=== PATIENT | female | born 1945 | race Caucasian/White ===

== ENCOUNTER 2017-08-30 09:40 | Inpatient (IN) | payer MEDICARE, OTHER ==
[~2017-08-30] VITALS: Ht 165.1 cm; Wt 82.0 kg
[2017-08-30 09:56] LABS: BASOPHILS ABSOLUTE AUTO 0.12 K/mm3 (0.00-0.23); BASOPHILS PERCENT AUTO 1 % (0-2); EOSINOPHILS ABSOLUTE AUTO 0.53 K/mm3 (0.00-0.68); EOSINOPHILS PERCENT AUTO 3 % (0-6); Hematocrit 48.1 % (33.0-51.0); Hemoglobin 16.1 g/dL (11.5-16.0); IMMATURE GRAN ABSOLUTE AUTO 0.08 K/mm3 (0.00-0.10); IMMATURE GRAN PERCENT AUTO 1 % (0-1); LYMPHOCYTES ABSOLUTE AUTO 4.74 K/mm3 (0.84-5.20); LYMPHOCYTES PERCENT AUTO 29 % (21-46); MONOCYTES ABSOLUTE AUTO 1.27 K/mm3 (0.16-1.47); MONOCYTES PERCENT AUTO 8 % (4-13); Mean Corpuscular HGB 28.9 pg (26.0-34.0); Mean Corpuscular HGB Conc 33.5 g/dL (31.5-36.5); Mean Corpuscular Volume 86 fL (80-100); Mean Platelet Volume 9.2 fL (9.1-12.4); NEUTROPHILS ABSOLUTE AUTO 9.86 K/mm3 (1.96-9.15); NEUTROPHILS PERCENT AUTO 59 % (41-73); Platelet Count 310 K/mm3 (150-400); RDW Standard Deviation 40.4 fL (35.1-46.3); Red Blood Cell Count 5.58 M/mm3 (3.80-5.20)
[2017-08-30 10:03] LABS: PCO2 Arterial 46.5 mmHg (35-45); PO2 Arterial 78.1 mmHg (80-100); pH Blood Arterial 7.32 (7.35-7.45)
[2017-08-30 10:19] LABS: Alanine Aminotransfer (ALT/SGP 50 U/L (12-78); Albumin, Blood 3.5 g/dL (3.4-5.0); Albumin/Globulin Ratio 0.8 (0.8-1.8); Alk Phos 154 U/L (50-136); Anion Gap 11 mmol/L (6-16); Aspartate Aminotrans (AST/SGOT 38 U/L (12-37); Bilirubin, Total 0.5 mg/dL (0.1-1.0); Blood Urea Nitrogen 12 mg/dL (8-24); Bun/Creatinine Ratio 17.2 (12.0-20.0); CO2, Blood 25 mmol/L (21-32); Calcium, Blood 8.9 mg/dL (8.5-10.1); Chloride, Blood 106 mmol/L (98-108); Globulin, Blood 4.2 g/dL (2.2-4.0); Glomerular Filtration Rate >60 (60-); Glucose, Blood 204 mg/dL (70-99); Potassium, Blood 4.1 mmol/L (3.5-5.5); Sodium, Blood 142 mmol/L (136-145); Total Protein, Blood 7.7 g/dL (6.4-8.2); Troponin I <0.015 ng/mL (0.000-0.040)
[2017-08-31 04:20] LABS: BASOPHILS ABSOLUTE AUTO 0.01 K/mm3 (0.00-0.23); BASOPHILS PERCENT AUTO 0 % (0-2); EOSINOPHILS PERCENT AUTO 0 % (0-6); Hematocrit 42.6 % (33.0-51.0); Hemoglobin 14.5 g/dL (11.5-16.0); IMMATURE GRAN ABSOLUTE AUTO 0.09 K/mm3 (0.00-0.10); IMMATURE GRAN PERCENT AUTO 1 % (0-1); LYMPHOCYTES ABSOLUTE AUTO 0.66 K/mm3 (0.84-5.20); LYMPHOCYTES PERCENT AUTO 6 % (21-46); MONOCYTES ABSOLUTE AUTO 0.18 K/mm3 (0.16-1.47); MONOCYTES PERCENT AUTO 2 % (4-13); Mean Corpuscular HGB 28.6 pg (26.0-34.0); Mean Corpuscular Volume 84 fL (80-100); Mean Platelet Volume 9.3 fL (9.1-12.4); NEUTROPHILS ABSOLUTE AUTO 10.56 K/mm3 (1.96-9.15); NEUTROPHILS PERCENT AUTO 92 % (41-73); Platelet Count 251 K/mm3 (150-400); RDW Standard Deviation 39.7 fL (35.1-46.3); Red Blood Cell Count 5.07 M/mm3 (3.80-5.20)
[2017-08-31 04:44] LABS: Anion Gap 9 mmol/L (6-16); Blood Urea Nitrogen 17 mg/dL (8-24); Bun/Creatinine Ratio 28.5 (12.0-20.0); CO2, Blood 26 mmol/L (21-32); Calcium, Blood 9.4 mg/dL (8.5-10.1); Chloride, Blood 105 mmol/L (98-108); Glomerular Filtration Rate >60 (60-); Glucose, Blood 168 mg/dL (70-99); Potassium, Blood 4.2 mmol/L (3.5-5.5); Sodium, Blood 140 mmol/L (136-145)
[2017-08-31] MEDS ORDERED: DIAZ5 PO (13:34)
[2017-08-31] MEDS ORDERED: METH5 PO (13:34)
[2017-08-31] MEDS ORDERED: OXYC5 PO (13:35)
[2017-08-31] MEDS ORDERED: METO25ER PO (13:35)
[2017-08-31] MEDS ORDERED: LISI5 PO (13:36)
[2017-08-31] MEDS ORDERED: DULO30 PO (13:37)
[2017-08-31] MEDS ORDERED: DULO60 PO (13:38)
[2017-09-01] MEDS ORDERED: METO25 PO (13:40)
[2017-09-01] MEDS ORDERED: Acetaminophen325 M1 PO (13:41)
[2017-09-01] MEDS ORDERED: ASPI81CH PO (13:42)
[2017-09-01] MEDS ORDERED: CEPH500 PO (13:42)
[2017-09-01] MEDS ORDERED: FURO20 PO (13:43)
[2017-09-01] MEDS ORDERED: PRED20 PO (13:44)
[2017-09-01] MEDS ORDERED: NICO21TP TOP (13:44)
[2017-09-01] MEDS ORDERED: AZIT500 PO (13:45)
== END 2017-09-01 15:26 | disposition home or self-care (01) | DRG 193 ==
LOC: ER 09:40 → PCU 11:56 → MEDS 08-31 18:35 → ENPENDDIS 09-01 12:30 → MEDS 09-01 15:26
PROVIDERS: Emergency Medicine; Family Medicine
PROC: 5A09357 Assistance with Respiratory Ventilation, Less than 24 Consecutive Hours, Continuous Positive Airway Pressure (ICD-10-PCS; principal; 2017-08-30)
DX: J18.9 Pneumonia, unspecified organism (principal); J96.21 Acute and chronic respiratory failure with hypoxia; J96.22 Acute and chronic respiratory failure with hypercapnia; J44.1 Chronic obstructive pulmonary disease with (acute) exacerbation; J44.0 Chronic obstructive pulmonary disease with (acute) lower respiratory infection; F17.210 Nicotine dependence, cigarettes, uncomplicated; M79.7 Fibromyalgia; G89.29 Other chronic pain; I50.9 Heart failure, unspecified; M54.9 Dorsalgia, unspecified; M19.90 Unspecified osteoarthritis, unspecified site; M85.80 Other specified disorders of bone density and structure, unspecified site; Z96.651 Presence of right artificial knee joint; Z66 Do not resuscitate; I48.2 Chronic atrial fibrillation; I11.0 Hypertensive heart disease with heart failure; T38.0X5A Adverse effect of glucocorticoids and synthetic analogues, initial encounter; R73.09 Other abnormal glucose; I16.0 Hypertensive urgency
CPT/HCPCS: 36415; 36600; 71045; 71046; 80048; 80053; 82803; 83605; 83880; 84145; 84443; 84484; 85025; 85379; 93005; 93010; 93306; 93970; 94060; 94640; 94660; 94664; 94667; 94760; 94762; 96365; 96366; 96375; 98960; 99285; 99407; J0456; J0696; J1650; J1940; J2930; J7030; J7050

== ENCOUNTER 2017-10-07 18:01 | Emergency (ER) | payer MEDICARE, OTHER ==
[~2017-10-07] VITALS: Ht 165.1 cm; Wt 78.0 kg
[~2017-10-07 18:01] MED LIST: ASPI81CH PO; AZIT500 PO; Acetaminophen325 M1 PO; CEPH500 PO; DIAZ5 PO; DULO30 PO; DULO60 PO; FURO40 PO; K-TAB ER20 MEQ PO; LISI5 PO; METH5 PO; METO25 PO; METO25ER PO; NICO21TP TOP; OXYC5 PO; PRED20 PO
[2017-10-07 18:58] LABS: BASOPHILS ABSOLUTE AUTO 0.04 K/mm3 (0.00-0.23); BASOPHILS PERCENT AUTO 0 % (0-2); EOSINOPHILS ABSOLUTE AUTO 0.11 K/mm3 (0.00-0.68); EOSINOPHILS PERCENT AUTO 1 % (0-6); Hematocrit 40.1 % (33.0-51.0); Hemoglobin 13.4 g/dL (11.5-16.0); IMMATURE GRAN ABSOLUTE AUTO 0.05 K/mm3 (0.00-0.10); IMMATURE GRAN PERCENT AUTO 1 % (0-1); LYMPHOCYTES ABSOLUTE AUTO 1.53 K/mm3 (0.84-5.20); LYMPHOCYTES PERCENT AUTO 16 % (21-46); MONOCYTES ABSOLUTE AUTO 0.86 K/mm3 (0.16-1.47); MONOCYTES PERCENT AUTO 9 % (4-13); Mean Corpuscular HGB 28.8 pg (26.0-34.0); Mean Corpuscular HGB Conc 33.4 g/dL (31.5-36.5); Mean Corpuscular Volume 86 fL (80-100); NEUTROPHILS ABSOLUTE AUTO 7.05 K/mm3 (1.96-9.15); NEUTROPHILS PERCENT AUTO 73 % (41-73); Platelet Count 224 K/mm3 (150-400); RDW Coefficient Variation 12.9 % (11.7-14.2); RDW Standard Deviation 40.1 fL (35.1-46.3); Red Blood Cell Count 4.65 M/mm3 (3.80-5.20); White Blood Cell Count 9.64 K/mm3 (4.00-11.30)
[2017-10-07 19:22] LABS: Anion Gap 6 mmol/L (6-16); Blood Urea Nitrogen 16 mg/dL (8-24); Bun/Creatinine Ratio 19.8 (12.0-20.0); CO2, Blood 30 mmol/L (21-32); Calcium, Blood 9.4 mg/dL (8.5-10.1); Chloride, Blood 103 mmol/L (98-108); Creatinine, Blood 0.81 mg/dL (0.40-1.00); Glomerular Filtration Rate >60 (60-); Glucose, Blood 98 mg/dL (70-99); Magnesium, Blood 2.3 mg/dL (1.6-2.4); Potassium, Blood 4.2 mmol/L (3.5-5.5); Sodium, Blood 139 mmol/L (136-145); Troponin I <0.015 ng/mL (0.000-0.040)
[2017-10-07 20:11] LABS: Source, Urine Clean Catch
[2017-10-07 20:13] LABS: Bilirubin, Urine Neg (Neg); Blood, Urine Neg (Neg); Glucose Qualitative, Urine Neg (Neg); Ketones, Urine Neg (Neg); Leukocyte Esterase, Urine 1+ (Neg); Nitrite, Urine Neg (Neg); Protein, Urine Neg (Neg); Specific Gravity, Urine 1.005 (1.003-1.022); Urobilinogen, Urine NORM (Normal)
[2017-10-07 20:21] LABS: Appearance, Urine Clear (Clear); Color, Urine Yellow (P-Yellow)
[2017-10-07 20:22] LABS: Bacteria Rare /hpf; Red Blood Cells, Urine 0-2 /hpf (0-2); Squamous Epithelial Cells Rare /hpf (Few); White Blood Cells, Urine 0-2 /hpf (0-5)
[2017-10-07] MEDS ORDERED: POTCHL20ER PO (20:38)
[2017-10-07] MEDS ORDERED: Lasix20 MG PO (20:38)
== END 2017-10-07 20:53 | disposition home or self-care (01) ==
LOC: ER 18:01
PROVIDERS: Emergency Medicine
DX: I50.9 Heart failure, unspecified (principal); R60.0 Localized edema; Z88.8 Allergy status to other drugs, medicaments and biological substances; Z79.899 Other long term (current) drug therapy; Z79.82 Long term (current) use of aspirin; Z79.2 Long term (current) use of antibiotics; Z79.52 Long term (current) use of systemic steroids; J44.9 Chronic obstructive pulmonary disease, unspecified; Z87.891 Personal history of nicotine dependence
CPT/HCPCS: 71046; 80048; 81001; 83735; 83880; 84484; 85025; 93005; 93010; 96374; 96375; 99285-25; J1940

== ENCOUNTER 2019-06-14 15:20 | Emergency (ER) | payer MEDICARE, OTHER ==
[~2019-06-14] VITALS: Ht 162.6 cm; Wt 74.8 kg
[~2019-06-14 15:20] MED LIST changes: +Lasix20 MG PO; +POTCHL20ER PO
[2019-06-14] MEDS ORDERED: Lopressor 50 mg50 MG PO (15:42)
[2019-06-14] MEDS ORDERED: OMEP20ER PO (15:43)
[2019-06-14] MEDS ORDERED: FURO40 PO (15:43)
[2019-06-14] MEDS ORDERED: ALBU90OI INH (15:43)
[2019-06-14] MEDS ORDERED: LISI20 PO (15:43)
[2019-06-14] MEDS ORDERED: OXYC5 PO (15:55)
[2019-06-14] MEDS ORDERED: DIAZ5 PO (15:55)
[2019-06-14] MEDS ORDERED: Valium5 MG PO (16:09)
[2019-06-14] MEDS ORDERED: DULO60 PO (16:09)
== END 2019-06-14 16:20 | disposition home or self-care (01) ==
LOC: ER 15:20
DX: F32.9 Major depressive disorder, single episode, unspecified (principal); Z76.0 Encounter for issue of repeat prescription; J44.9 Chronic obstructive pulmonary disease, unspecified; I50.9 Heart failure, unspecified; Z88.8 Allergy status to other drugs, medicaments and biological substances; Z79.899 Other long term (current) drug therapy; Z87.891 Personal history of nicotine dependence
CPT/HCPCS: 99281

== ENCOUNTER → 2019-08-25 | Outpatient (CLI) | payer MEDICARE, OTHER ==
[~2019-08-25] MED LIST changes: +ALBU90OI INH; +LISI20 PO; +Lopressor 50 mg50 MG PO; +OMEP20ER PO; +Valium5 MG PO
[2019-08-25 12:19] LABS: BASOPHILS ABSOLUTE AUTO 0.07 K/mm3 (0.00-0.23); BASOPHILS PERCENT AUTO 1 % (0-2); EOSINOPHILS ABSOLUTE AUTO 0.24 K/mm3 (0.00-0.68); EOSINOPHILS PERCENT AUTO 2 % (0-6); Hematocrit 44.5 % (33.0-51.0); Hemoglobin 15.1 g/dL (11.5-16.0); IMMATURE GRAN ABSOLUTE AUTO 0.04 K/mm3 (0.00-0.10); IMMATURE GRAN PERCENT AUTO 0 % (0-1); LYMPHOCYTES ABSOLUTE AUTO 1.65 K/mm3 (0.84-5.20); LYMPHOCYTES PERCENT AUTO 16 % (21-46); MONOCYTES ABSOLUTE AUTO 0.85 K/mm3 (0.16-1.47); MONOCYTES PERCENT AUTO 8 % (4-13); Mean Corpuscular HGB 28.5 pg (26.0-34.0); Mean Corpuscular HGB Conc 33.9 g/dL (31.5-36.5); Mean Corpuscular Volume 84 fL (80-100); Mean Platelet Volume 9.1 fL (9.1-12.4); NEUTROPHILS ABSOLUTE AUTO 7.26 K/mm3 (1.96-9.15); NEUTROPHILS PERCENT AUTO 72 % (41-73); Platelet Count 287 K/mm3 (150-400); RDW Coefficient Variation 12.7 % (11.7-14.2); RDW Standard Deviation 38.3 fL (35.1-46.3); White Blood Cell Count 10.11 K/mm3 (4.00-11.30)
[2019-08-25 12:28] LABS: Albumin, Blood 3.9 g/dL (3.4-5.0); Bilirubin, Total 0.5 mg/dL (0.1-1.0); Bun/Creatinine Ratio 20.6 (12.0-20.0); Calcium, Blood 9.9 mg/dL (8.5-10.1); Creatinine, Blood 1.65 mg/dL (0.40-1.00); Globulin, Blood 3.8 g/dL (2.2-4.0); Potassium, Blood 4.5 mmol/L (3.5-5.5); Total Protein, Blood 7.7 g/dL (6.4-8.2)
== END | disposition home or self-care (01) ==
LOC: LAB EV 12:11 → LAB SHORT 12:11
PROVIDERS: Physician Assistant Surgical
DX: R53.83 Other fatigue (principal)
CPT/HCPCS: 80053; 83880; 84484; 85025

== ENCOUNTER → 2020-10-20 | Outpatient (CLI) | payer OTHER ==
[2020-10-20 14:45] LABS: BASOPHILS ABSOLUTE AUTO 0.06 K/mm3 (0.00-0.23); BASOPHILS PERCENT AUTO 1 % (0-2); EOSINOPHILS ABSOLUTE AUTO 0.18 K/mm3 (0.00-0.68); EOSINOPHILS PERCENT AUTO 2 % (0-6); Hematocrit 42.5 % (33.0-51.0); Hemoglobin 14.6 g/dL (11.5-16.0); IMMATURE GRAN ABSOLUTE AUTO 0.03 K/mm3 (0.00-0.10); IMMATURE GRAN PERCENT AUTO 0 % (0-1); LYMPHOCYTES ABSOLUTE AUTO 1.39 K/mm3 (0.84-5.20); LYMPHOCYTES PERCENT AUTO 17 % (21-46); MONOCYTES PERCENT AUTO 9 % (4-13); Mean Corpuscular HGB 28.9 pg (26.0-34.0); Mean Corpuscular HGB Conc 34.4 g/dL (31.5-36.5); Mean Corpuscular Volume 84 fL (80-100); Mean Platelet Volume 9.1 fL (9.1-12.4); NEUTROPHILS ABSOLUTE AUTO 5.84 K/mm3 (1.96-9.15); NEUTROPHILS PERCENT AUTO 71 % (41-73); Platelet Count 266 K/mm3 (150-400); RDW Coefficient Variation 12.9 % (11.7-14.2); RDW Standard Deviation 39.3 fL (35.1-46.3); Red Blood Cell Count 5.06 M/mm3 (3.80-5.20)
[2020-10-20 15:05] LABS: Albumin, Blood 3.8 g/dL (3.4-5.0); Bilirubin, Total 0.5 mg/dL (0.1-1.0); Bun/Creatinine Ratio 18.7 (12.0-20.0); Calcium, Blood 9.7 mg/dL (8.5-10.1); Creatinine, Blood 1.23 mg/dL (0.40-1.00); Globulin, Blood 3.7 g/dL (2.2-4.0); Potassium, Blood 3.8 mmol/L (3.5-5.5); Thyroid Stimulating Hormone 3.069 uIU/mL (0.360-4.800); Total Protein, Blood 7.5 g/dL (6.4-8.2)
== END ==
LOC: LAB SHORT 14:41 → PLD 14:41
PROVIDERS: Physician Assistant
DX: R53.83 Other fatigue (principal); Z88.8 Allergy status to other drugs, medicaments and biological substances
CPT/HCPCS: 80053; 84443; 85025

== ENCOUNTER → 2021-10-28 | Outpatient (CLI) | payer OTHER | END | disposition home or self-care (01) | LOC: PLD 07:54 → LAB SHORT 07:54 | DX: B35.1 Tinea unguium (principal); L60.2 Onychogryphosis | CPT/HCPCS: 88304; 88312 ==

== ENCOUNTER 2022-05-22 10:46 | Emergency (ER) | payer OTHER ==
[~2022-05-22] VITALS: Ht 165.1 cm; Wt 83.9 kg
[2022-05-22 11:46] LABS: BASOPHILS ABSOLUTE AUTO 0.08 K/mm3 (0.00-0.23); BASOPHILS PERCENT AUTO 1 % (0-2); EOSINOPHILS ABSOLUTE AUTO 0.36 K/mm3 (0.00-0.68); EOSINOPHILS PERCENT AUTO 4 % (0-6); Hematocrit 37.9 % (33.0-51.0); Hemoglobin 12.7 g/dL (11.5-16.0); IMMATURE GRAN ABSOLUTE AUTO 0.04 K/mm3 (0.00-0.10); IMMATURE GRAN PERCENT AUTO 0 % (0-1); LYMPHOCYTES ABSOLUTE AUTO 1.45 K/mm3 (0.84-5.20); LYMPHOCYTES PERCENT AUTO 16 % (21-46); MONOCYTES ABSOLUTE AUTO 0.92 K/mm3 (0.16-1.47); MONOCYTES PERCENT AUTO 10 % (4-13); Mean Corpuscular HGB 28.9 pg (26.0-34.0); Mean Corpuscular HGB Conc 33.5 g/dL (31.5-36.5); Mean Corpuscular Volume 86 fL (80-100); Mean Platelet Volume 9.2 fL (9.1-12.4); NEUTROPHILS ABSOLUTE AUTO 6.18 K/mm3 (1.96-9.15); NEUTROPHILS PERCENT AUTO 68 % (41-73); Platelet Count 245 K/mm3 (150-400); RDW Coefficient Variation 12.6 % (11.7-14.2); RDW Standard Deviation 39.7 fL (35.1-46.3); Red Blood Cell Count 4.39 M/mm3 (3.80-5.20); White Blood Cell Count 9.03 K/mm3 (4.00-11.30)
[2022-05-22 12:05] LABS: Calcium, Ionized (POC) 1.25 mmol/L (1.10-1.46); Chloride (POC) 102 mmol/L (98-108); Creatinine (POC) 1.5 mg/dL (0.6-1.0); Glucose (ISTAT POC) 98 mg/dL (70-99); Hemoglobin (POC) 12.2 g/dL (12.0-16.0); Potassium (POC) 4.4 mmol/L (3.5-5.5); Sodium (POC) 139 mmol/L (135-148); Total CO2 (POC) 28 mmol/L (21-32)
[2022-05-23] MEDS ORDERED: ATOR10 PO (08:54)
[2022-05-23] MEDS ORDERED: Potassium Chlo20 ME1 PO (08:54)
[2022-05-23] MEDS ORDERED: SOAANZ20 M3 PO (08:54)
[2022-05-23] MEDS ORDERED: Flonase 0.05% N16 GM (10:18)
[2022-05-23] MEDS ORDERED: SYMBICORT 80-10.2 GM INH (10:18)
== END 2022-05-22 12:55 | disposition left against medical advice (07) ==
LOC: ER 10:46
PROVIDERS: Physician Assistant
DX: R05.9 Cough, unspecified (principal); Z53.21 Procedure and treatment not carried out due to patient leaving prior to being seen by health care provider
CPT/HCPCS: 36415; 71046; 80047; 83880; 85014; 85025; 93005; 93010; 99282-25

== ENCOUNTER 2022-11-09 22:55 | Emergency (ER) | payer OTHER ==
[~2022-11-09] VITALS: Ht 160 cm; Wt 79.4 kg
[~2022-11-09 22:55] MED LIST changes: +ATOR10 PO; +Flonase 0.05% N16 GM; +Potassium Chlo20 ME1 PO; +SOAANZ20 M3 PO; +SYMBICORT 80-10.2 GM INH
[2022-11-09 23:01] VITALS: BP 178/62
[2022-11-10] MEDS ORDERED: DULO30 PO (00:57)
[2022-11-10] MEDS ORDERED: CLOP75 (00:57)
[2022-11-10] MEDS ORDERED: MUPIROCIN111 (00:57)
== END 2022-11-10 01:57 | disposition home or self-care (01) ==
LOC: ER 22:55
DX: L25.9 Unspecified contact dermatitis, unspecified cause (principal); Z91.030 Bee allergy status; Z88.8 Allergy status to other drugs, medicaments and biological substances; Z79.899 Other long term (current) drug therapy; Z87.891 Personal history of nicotine dependence; I13.0 Hypertensive heart and chronic kidney disease with heart failure and stage 1 through stage 4 chronic kidney disease, or unspecified chronic kidney disease; E78.5 Hyperlipidemia, unspecified; I50.9 Heart failure, unspecified; N18.30 Chronic kidney disease, stage 3 unspecified; I48.91 Unspecified atrial fibrillation
CPT/HCPCS: 99282; A9270

== ENCOUNTER 2024-05-23 07:44 | Emergency (ER) | payer OTHER ==
[~2024-05-23] VITALS: Ht 160 cm; Wt 77.1 kg
[~2024-05-23 07:44] MED LIST changes: +CLOP75; -Lopressor 50 mg50 MG PO; +METO100ER PO; +MUPIROCIN111; +SOAANZ20 M1 PO
[2024-05-23 08:47] LABS: BASOPHILS ABSOLUTE AUTO 0.06 K/mm3 (0.00-0.23); BASOPHILS PERCENT AUTO 1 % (0-2); EOSINOPHILS ABSOLUTE AUTO 0.14 K/mm3 (0.00-0.68); EOSINOPHILS PERCENT AUTO 2 % (0-6); Hemoglobin 11.3 g/dL (11.5-16.0); IMMATURE GRAN ABSOLUTE AUTO 0.05 K/mm3 (0.00-0.10); IMMATURE GRAN PERCENT AUTO 1 % (0-1); LYMPHOCYTES ABSOLUTE AUTO 0.52 K/mm3 (0.84-5.20); LYMPHOCYTES PERCENT AUTO 6 % (21-46); MONOCYTES ABSOLUTE AUTO 0.74 K/mm3 (0.16-1.47); MONOCYTES PERCENT AUTO 8 % (4-13); Mean Corpuscular HGB Conc 33.2 g/dL (31.5-36.5); Mean Corpuscular Volume 84 fL (80-100); Mean Platelet Volume 9.1 fL (9.1-12.4); NEUTROPHILS ABSOLUTE AUTO 7.64 K/mm3 (1.96-9.15); NEUTROPHILS PERCENT AUTO 84 % (41-73); Platelet Count 285 K/mm3 (150-400); RDW Coefficient Variation 13.7 % (11.7-14.2); RDW Standard Deviation 42.3 fL (35.1-46.3); Red Blood Cell Count 4.04 M/mm3 (3.80-5.20); White Blood Cell Count 9.15 K/mm3 (4.00-11.30)
[2024-05-23 09:08] LABS: Albumin/Globulin Ratio 0.8 (0.8-1.8); Bilirubin, Total 0.7 mg/dL (0.1-1.0); Bun/Creatinine Ratio 21.8 (12.0-20.0); Calcium, Blood 9.2 mg/dL (8.5-10.1); Creatinine, Blood 1.19 mg/dL (0.40-1.00); Globulin, Blood 3.9 g/dL (2.2-4.0); Potassium, Blood 4.5 mmol/L (3.5-5.5); Total Protein, Blood 6.9 g/dL (6.4-8.2)
[2024-05-23] MEDS ORDERED: Furosemide 10 MG / ML 2ML Vial IV ONE (09:20)
[2024-05-23 12:56] LABS: Influenza A, PCR NEGATIVE (NEGATIVE); Influenza B, PCR NEGATIVE (NEGATIVE); Resp Syncytial Virus, PCR NEGATIVE (NEGATIVE); SARS-Cov-2 (COVID-19) PCR, MMC NEGATIVE (NEGATIVE)
[2024-05-23 13:15] VITALS: BP 117/64
== END 2024-05-23 13:16 | disposition home or self-care (01) ==
LOC: ER 07:44
PROVIDERS: Physician Assistant
DX: I13.0 Hypertensive heart and chronic kidney disease with heart failure and stage 1 through stage 4 chronic kidney disease, or unspecified chronic kidney disease (principal); I50.9 Heart failure, unspecified; N18.30 Chronic kidney disease, stage 3 unspecified; E78.5 Hyperlipidemia, unspecified; Z87.891 Personal history of nicotine dependence; Z91.038 Other insect allergy status; Z88.8 Allergy status to other drugs, medicaments and biological substances; Z79.899 Other long term (current) drug therapy
CPT/HCPCS: 0241U; 71046; 80053; 83880; 85025; 93005; 93010; 96374; 99285-25; J1940

== ENCOUNTER 2024-05-25 03:38 | Inpatient (IN) | payer OTHER ==
[~2024-05-25] VITALS: Ht 167.6 cm; Wt 77.6 kg
[2024-05-25 03:52] LABS: BASOPHILS ABSOLUTE AUTO 0.05 K/mm3 (0.00-0.23); BASOPHILS PERCENT AUTO 1 % (0-2); EOSINOPHILS ABSOLUTE AUTO 0.17 K/mm3 (0.00-0.68); EOSINOPHILS PERCENT AUTO 2 % (0-6); Hematocrit 34.5 % (33.0-51.0); Hemoglobin 11.3 g/dL (11.5-16.0); IMMATURE GRAN ABSOLUTE AUTO 0.06 K/mm3 (0.00-0.10); IMMATURE GRAN PERCENT AUTO 1 % (0-1); LYMPHOCYTES ABSOLUTE AUTO 0.93 K/mm3 (0.84-5.20); LYMPHOCYTES PERCENT AUTO 12 % (21-46); MONOCYTES ABSOLUTE AUTO 0.68 K/mm3 (0.16-1.47); MONOCYTES PERCENT AUTO 9 % (4-13); Mean Corpuscular HGB 27.7 pg (26.0-34.0); Mean Corpuscular HGB Conc 32.8 g/dL (31.5-36.5); Mean Corpuscular Volume 85 fL (80-100); NEUTROPHILS ABSOLUTE AUTO 5.94 K/mm3 (1.96-9.15); NEUTROPHILS PERCENT AUTO 76 % (41-73); Platelet Count 296 K/mm3 (150-400); RDW Coefficient Variation 14.1 % (11.7-14.2); RDW Standard Deviation 43.5 fL (35.1-46.3); Red Blood Cell Count 4.08 M/mm3 (3.80-5.20); White Blood Cell Count 7.83 K/mm3 (4.00-11.30)
[2024-05-25] MEDS ORDERED: Albuterol 2.5 MG/3 ML VIAL INH PRN (03:55)
[2024-05-25] MEDS ORDERED: Ipratropium/Albuterol SulF 2.5-0.5MG/3 ML Amp INH SCH ×2 (03:55→05:10)
[2024-05-25] MEDS ORDERED: Metoprolol Tartrate 1 MG/ML 5 ML VIAL IV ONE (03:55)
[2024-05-25 03:57] LABS: Base Excess Venous -1.2 mmol/L; Bicarbonate Venous 23.2 mmol/L (24.0-30.0); PCO2 Venous 40.2 mmHg (38-42); pH Blood Venous 7.38 (7.34-7.37)
[2024-05-25 04:14] LABS: Albumin, Blood 2.9 g/dL (3.4-5.0); Albumin/Globulin Ratio 0.7 (0.8-1.8); Bilirubin, Total 0.5 mg/dL (0.1-1.0); Bun/Creatinine Ratio 26.8 (12.0-20.0); Calcium, Blood 8.9 mg/dL (8.5-10.1); Creatinine, Blood 0.93 mg/dL (0.40-1.00); Globulin, Blood 3.9 g/dL (2.2-4.0); Magnesium, Blood 2.4 mg/dL (1.6-2.4); Phosphorus, Blood 3.3 mg/dL (2.5-4.9); Potassium, Blood 4.3 mmol/L (3.5-5.5); Total Protein, Blood 6.8 g/dL (6.4-8.2)
[2024-05-25] MEDS ORDERED: Azithromycin 500 MG in NS 250 ML IV ONE (04:30)
[2024-05-25] MEDS ORDERED: CefTRIAXone Sodium 1,000 MG in NS 50 ML IV ONE (04:30)
[2024-05-25 04:35] LABS: International Normalized Ratio 1.02; Prothrombin Time Results 10.9 Sec (9.7-11.5)
[2024-05-25 04:42] LABS: Influenza A, PCR NEGATIVE (NEGATIVE); Influenza B, PCR NEGATIVE (NEGATIVE); Resp Syncytial Virus, PCR NEGATIVE (NEGATIVE); SARS-Cov-2 (COVID-19) PCR, MMC NEGATIVE (NEGATIVE)
[2024-05-25] MEDS ORDERED: FLU VACC TS2024-25(6MOS UP)/PF 45 MCG/0.5 ML SYRINGE IM ONE (05:05)
[2024-05-25] MEDS ORDERED: Acetaminophen 325 MG TABLET PO PRN (05:10)
[2024-05-25] MEDS ORDERED: Heparin Sodium,Porcine/0.5 NS 500 ML IV SCH (05:25)
[2024-05-25] MEDS ORDERED: Metoprolol Tartrate 5 ML IV ONE (07:42)
[2024-05-25] MEDS ORDERED: GuaiFENesin 600 MG TabCR PO SCH (09:00)
[2024-05-25] MEDS ORDERED: Furosemide 10 MG/ML 4ML Vial IV SCH (09:00)
[2024-05-25] MEDS ORDERED: Metoprolol Tartrate 50 MG Tab PO SCH (09:00)
[2024-05-25] MEDS ORDERED: PredniSONE 20 MG Tab PO SCH (09:00)
[2024-05-25] MEDS ORDERED: Calcium Carbon500 MG PO (09:08)
[2024-05-25] MEDS ORDERED: CLOBETASOL EMOL15 G1 TOP (09:14)
[2024-05-25] MEDS ORDERED: CALCITRIOL0.25 MC4 PO (09:15)
[2024-05-25 09:30] VITALS: BP 134/93
[2024-05-25 12:30] VITALS: BP 144/91
[2024-05-25] MEDS ORDERED: Dose Adjust by Pharmacy XX STA ×2 (13:10→19:59)
[2024-05-25 16:48] VITALS: BP 123/86
[2024-05-25] MEDS ORDERED: Metoprolol Succinate 50 MG TABCR PO SCH (16:55)
--- NOTE | 2024-05-25 18:51 | NUR ---
SHIFT SUMMARY PATIENT CAME UP FROM ED AOX4 SOB ON 4L NC. HER LUNG SOUNDS ARE COARSE AND WHEEZING. HER O2 SATS ARE ABOVE 92% ON THE NASAL CANNULA BUT INTERMITTANTLY FEELS SOB SO SHE CONTINUES TO ALTERNATE ON AND OFF THE BIPAP. SHE IS ABLE TO MAKE HER NEEDS KNOWN AND AND DENIES CP. SHE DOES HAVE AFIB WITH AN ELEVATED HEART RATE. THE HOSPITALIST WAS PAGED TO CORRECT HER HOME MED DOSE OF TOPROL XL BECAUASE HER HEART RATE CONTINUED TO INCREASE THROUGHOUT THE SHIFT. SHE IS ABLE TO GET UP TO THE BEDSIDE COMMODE WITH A 1X ASSIST SHE HAD A BM TODAY. SHE IS ABLE TO VOID URINE WITH THE PUREWICK AND UP TO BSC. 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
[2024-05-25 19:30] VITALS: BP 132/98
[2024-05-25] MEDS ORDERED: HydrOXYzine Pamoate 50 MG Cap PO PRN (21:20)
[2024-05-26] VITALS (14 sets, daily range): BP systolic 97–146; BP diastolic 62–98
--- NOTE | 2024-05-26 01:22 | NUR ---
UPDATE PT VERY ANXIOUS T/O SHIFT. PTS RR INCREASING TO THE 30'S AND PT ALMOST TO THE POINT OF HAVING A PANIC ATTACK. PT BECAME ANXIOUS WITH BIPAP ON HER FACE BUT ALSO INCREASINGLY ANXIOUS WITHOUT IT ON. PER PT SHE TAKES VALIUM AT HOME SHE FEELS NEED. CALL PLACED TO PROVIDER, ORDERS FOR PRN ANTI-ANXIETY ORDERED. PT TOLERATING WELL AND SLEEPING OKAY WITH BIPAP ON AFTER RECEVING HYDROXIZINE.
[2024-05-26 02:35] LABS: BASOPHILS ABSOLUTE AUTO 0.03 K/mm3 (0.00-0.23); BASOPHILS PERCENT AUTO 0 % (0-2); EOSINOPHILS PERCENT AUTO 0 % (0-6); Hematocrit 35.1 % (33.0-51.0); Hemoglobin 11.4 g/dL (11.5-16.0); IMMATURE GRAN ABSOLUTE AUTO 0.06 K/mm3 (0.00-0.10); IMMATURE GRAN PERCENT AUTO 1 % (0-1); LYMPHOCYTES ABSOLUTE AUTO 0.67 K/mm3 (0.84-5.20); LYMPHOCYTES PERCENT AUTO 5 % (21-46); MONOCYTES ABSOLUTE AUTO 0.74 K/mm3 (0.16-1.47); MONOCYTES PERCENT AUTO 6 % (4-13); Mean Corpuscular HGB 27.3 pg (26.0-34.0); Mean Corpuscular HGB Conc 32.5 g/dL (31.5-36.5); Mean Corpuscular Volume 84 fL (80-100); Mean Platelet Volume 9.1 fL (9.1-12.4); NEUTROPHILS ABSOLUTE AUTO 11.32 K/mm3 (1.96-9.15); NEUTROPHILS PERCENT AUTO 88 % (41-73); Platelet Count 307 K/mm3 (150-400); RDW Coefficient Variation 14.2 % (11.7-14.2); RDW Standard Deviation 43.6 fL (35.1-46.3); Red Blood Cell Count 4.17 M/mm3 (3.80-5.20); White Blood Cell Count 12.82 K/mm3 (4.00-11.30)
[2024-05-26 02:59] LABS: Bun/Creatinine Ratio 35.3 (12.0-20.0); Calcium, Blood 9.4 mg/dL (8.5-10.1); Creatinine, Blood 1.02 mg/dL (0.40-1.00); Potassium, Blood 4.7 mmol/L (3.5-5.5)
[2024-05-26] MEDS ORDERED: Dose Adjust by Pharmacy XX STA (02:59)
--- NOTE | 2024-05-26 05:08 | NUR ---
SHIFT SUMMARY PT A&O X4, SHE IS FORGETFUL AT TIMES. PT IS VERY ANXIOUS AT ALL TIMES, PRN HYDROXYZINE ORDERED. HR IN THE 90'S AT REST, SHE OCASSIONALLY INCREASES TO THE 110'S, SHE DENIES CP/PRESSURE, NUMB/TINGLING, SBP STABLE. O2 >92%. PT REMAINS ON BIPAP MOST OF THE THE NIGHT, PT DOES GET VERY ANXIOUS AND PULLS OFF HER MASK AND PUTS ON THE NC. AFTER BEING ON THE NC PTS RR WILL INCREASE, SHE BEGINS TO PANIC AGIAN AND WILL GO BACK ON BIPAP. PT TOLERATING BIPAP SOMEWHAT BETTER AFTER GETTING HYDROXIZINE. PT RESTING IN BED AT THIS TIME. WILL MONITOR AND REPORT TO ONCOMING NURSE.
[2024-05-26] MEDS ORDERED: Azithromycin 500 MG in NS 250 ML IV SCH (06:00)
[2024-05-26] MEDS ORDERED: MethylPREDNISolone Sod Succ 125 MG Vial IV ONE (09:00)
[2024-05-26] MEDS ORDERED: Enoxaparin 40 MG/0.4 ML SYR SC SCH (09:00)
[2024-05-26] MEDS ORDERED: LORazepam 2 MG/ML 1ML Injection IV PRN (09:30)
[2024-05-26 09:32] LABS: Base Excess Venous -0.6 mmol/L; Bicarbonate Venous 22.4 mmol/L (24.0-30.0); PCO2 Venous 49.7 mmHg (38-42); pH Blood Venous 7.32 (7.34-7.37)
[2024-05-26 10:24] LABS: Adenovirus Not Detected (NOT DETECT); Bordetella pertussis Not Detected (NOT DETECT); Chlamydophila pneumoniae Not Detected (NOT DETECT); Coronavirus 229E Not Detected (NOT DETECT); Coronavirus HKU1 Not Detected (NOT DETECT); Coronavirus NL63 Not Detected (NOT DETECT); Coronavirus OC43 Not Detected (NOT DETECT); Human Metapneumovirus Detected (NOT DETECT); Human Rhinovirus/Enterovirus Not Detected (NOT DETECT); Influenza A/2009-H1 Not Detected (NOT DETECT); Influenza A/H1 Not Detected (NOT DETECT); Influenza A/H3 Not Detected (NOT DETECT); Influenza B Not Detected (NOT DETECT); Mycoplasma pneumoniae Not Detected (NOT DETECT); Parainfluenza Virus 1 Not Detected (NOT DETECT); Parainfluenza Virus 2 Not Detected (NOT DETECT); Parainfluenza Virus 3 Not Detected (NOT DETECT); Parainfluenza Virus 4 Not Detected (NOT DETECT); Respiratory Syncytial Virus Not Detected (NOT DETECT); SARS-Cov-2 (COVID-19), BioFire Not Detected (NOT DETECT)
--- NOTE | 2024-05-26 11:40 | NUR ---
UPDATE/ TRANSFER TO ICU PATIENT WAS A0X4 AT SHIFT CHANGE THIS MORNING ABLE TO MAKE NEED KNOWN. SHE WAS ON THE BIPAP TOLERATING IT WELL. SHE COMPLAINED OF HAVING SOME ANXIETY AND SOME AXIETY MEDS ON STUDENT WORKER. SHE THEN STARTED HAVING SOB WHILE ON BIPAP WITH HER RESPIRATORY RATE IN THE 30'S AND 40'S. HER LUNG SOUNDS WHERE COARSE WITH WHEEZES AND HER WORK OF BREATHING INCRESED. HER O2 SATS WHERE ABOVE 90% THE WHOLE TIME. THE HOSPITALIST WAS AT BEDSIDE AND ORDERED SOLUMEDROL, ATIVAN AND LABS. LASIX WAS ALSO GIVEN IV AND THE HOSPITALIST ORDERED HER TO BE TRANSFERRED TO ICU. AFTER THE MEDS WHERE GIVEN SHE DID CALM DOWN WITH HER RR IN THE 20'S SHE STILL SATTING IN THE 90'S AND HER WORK TO BREATHE IMPROVED. SHE DID HAVE SOME URINARY RETENTION SHE WAS BLADDER SCANNED AND IT SHOWED 733CC. SHE DID SAY SHE FELT SHE HAD TO URINATE AND WHEN SHE PUSHED SHE WAS ABLE TO VOID 500CC. SHE WAS BLADDER SCANNED AGAIN AND IT STILL SHOWED 700CC. REPORT WAS CALLED TO ICU AND LET THEM KNOW ABOUT THE URINARY RETENTION. REPORT WAS CALLED TO ICU
[2024-05-26] MEDS ORDERED: Metolazone 5 MG Tab PO ONE (12:00)
[2024-05-26] MEDS ORDERED: Metoprolol Tartrate 1 MG/ML 5 ML VIAL IV SCH (12:00)
[2024-05-26] MEDS ORDERED: MethylPREDNISolone Sod Succ 125 MG Vial IV SCH (12:00)
[2024-05-26] MEDS ORDERED: Furosemide 10 MG/ML 4ML Vial IV SCH (12:00)
[2024-05-26] MEDS ORDERED: Metoprolol Tartrate 50 MG Tab PO SCH (12:30)
--- NOTE | 2024-05-26 13:18 | NUR ---
TRANSFER PT ARRIVED TO ICU 6 FROM PCU 12. PT WEARING THE BIPAP, OPENS EYES TO VOICE, ORIENTED. HR AFIB WITH RATE IN THE 110-120S. SCHEDULED IV METOPROLOL GIVEN AND ORDER FOR PO METOPROLOL OBTAINED PT TOLERATED A SHORT BREAK FROM THE BIPAP FOR A DRINK OF WATER. ALSO GAVE PT TYLENOL FOR HER BACK PAIN AND TEMP 100.7F. BLADDER SCAN AFTER ARRIVAL SHOWED PT HAD OVER 600ML OF URINE IN HER BLADDER AND SHE WAS UNABLE TO VOID. SPOKE WITH DR CEE AND RECEIVED ORDERS TO PLACE STANTON. PT HAS HAD 1200ML OUT SO FAR. LUNGS ARE DIM, CLEAR IN THE UPPERS, CRACKLES IN THE MID AND BASES. PRODUCTIVE COUGH, YELLOW SPUTUM. TRACE EDEMA IN LOWER EXTREMITIES. PT'S SRIDHAR AT THE BEDSIDE AND WAS UPDATED BY DR. CEE AND NURSING STAFF.
[2024-05-26] MEDS ORDERED: CefTRIAXone Sodium 1,000 MG in NS 100 ML IV ONE (14:35)
--- NOTE | 2024-05-26 16:57 | NUR ---
SHIFT SUMMARY PT HAS BEEN RESTING WITH THE BIPAP ON SINCE ARRIVING TO ICU. ATTEMPTED TO TITRATE HER DOWN TO FIO2 OF 21% TWICE, BUT EACH TIME SHE DESATURATED TO 85%, SO FIO2 REMAINS AT 25%. LUNGS ARE CLEAR IN THE UPPER AIRWAYS, CRACKLES IN THE BASES. AFIB WITH RATE IN THE LOW 100S. TEMP CAME DOWN TO 99.1F AFTER TYLENOL. PT'S SRIDHAR AND SISTER HAVE BEEN AT THE BEDSIDE AND UPDATED BY NURSING STAFF.
[2024-05-27] VITALS (19 sets, daily range): BP systolic 97–162; BP diastolic 63–119
[2024-05-27 04:25] LABS: BASOPHILS ABSOLUTE AUTO 0.03 K/mm3 (0.00-0.23); BASOPHILS PERCENT AUTO 0 % (0-2); EOSINOPHILS PERCENT AUTO 0 % (0-6); Hematocrit 37.4 % (33.0-51.0); Hemoglobin 12.5 g/dL (11.5-16.0); IMMATURE GRAN PERCENT AUTO 1 % (0-1); LYMPHOCYTES ABSOLUTE AUTO 1.06 K/mm3 (0.84-5.20); LYMPHOCYTES PERCENT AUTO 7 % (21-46); MONOCYTES PERCENT AUTO 6 % (4-13); Mean Corpuscular HGB 27.4 pg (26.0-34.0); Mean Corpuscular HGB Conc 33.4 g/dL (31.5-36.5); Mean Corpuscular Volume 82 fL (80-100); Mean Platelet Volume 9.2 fL (9.1-12.4); NEUTROPHILS ABSOLUTE AUTO 13.32 K/mm3 (1.96-9.15); NEUTROPHILS PERCENT AUTO 86 % (41-73); Platelet Count 366 K/mm3 (150-400); RDW Coefficient Variation 14.1 % (11.7-14.2); RDW Standard Deviation 41.7 fL (35.1-46.3); Red Blood Cell Count 4.56 M/mm3 (3.80-5.20); White Blood Cell Count 15.51 K/mm3 (4.00-11.30)
[2024-05-27 04:44] LABS: Albumin, Blood 3.2 g/dL (3.4-5.0); Albumin/Globulin Ratio 0.7 (0.8-1.8); Bilirubin, Total 0.4 mg/dL (0.1-1.0); Bun/Creatinine Ratio 40.5 (12.0-20.0); Calcium, Blood 9.6 mg/dL (8.5-10.1); Creatinine, Blood 1.26 mg/dL (0.40-1.00); Globulin, Blood 4.3 g/dL (2.2-4.0); Potassium, Blood 3.7 mmol/L (3.5-5.5); Total Protein, Blood 7.5 g/dL (6.4-8.2)
[2024-05-27] MEDS ORDERED: Clarify Drug Order XX ONE (04:55)
--- NOTE | 2024-05-27 05:44 | NUR ---
SHIFT SUMMERY PT IS ALERT AND ORIENTED X4, OXYGENATING WELL ON NC. OXYGEN SAT >95% OVERNIGHT. BP WNL. AFIB ON THE STAKEHOLDER MANAGER, DENIES CHEST PAIN/PRESSURE. GOOD URINE OUTPUT /W LASIX-SEE I AND O. STANTON CATH INTACT PATENT AND DRAINING CLEAR YELLOW URINE. HEPARIN GTT INFUSING W/NO CHANGES THIS SHIFT. PT HAS NOT COMPLAINED OF ANY PAIN. AFEBRILE. PT DOES HAVE AN OCCASIONAL, NON PRODUCTIVE BARKING COUGH. NO ACUTE CHANGES OVERNIGHT.
--- NOTE | 2024-05-27 07:15 | NUR ---
ASSUMPTION OF CARE: ASSUMED CARE OF PATIENT. PATIENT RESTING QUIETLY IN BED. NO SIGNS OF PAIN OR DISTRESS AT THIS TIME. BREATHING IS EVEN, REGULAR AND UNLABORED. PATIENT CURRENTLY ON 2L VIA NC. SPO2 >94%. RR IN THE 10S-LOW 20S. PER NIGHT RN, PATIENT DID NOT REQUIRE OR REQUEST THE BIPAP DURING THE NIGHT. BLOOD PRESSURES STABLE WITH MAPS >65. HR IN THE 80S-100S. STANTON IN PLACE AND DRAINING YELLOW URINE. HEPARIN GTT INFUSING AT 19 UNITS/KG/HR OR 25.1 MLS/HR.
[2024-05-27] MEDS ORDERED: Sacubitril/Valsartan 24 MG-26 MG Tab PO SCH (08:00)
[2024-05-27] MEDS ORDERED: Metoprolol Succinate 50 MG TABCR PO SCH (09:00)
[2024-05-27] MEDS ORDERED: Apixaban 5 MG Tab PO SCH (09:00)
[2024-05-27] MEDS ORDERED: Metoprolol Succinate 50 MG TABCR PO ONE (17:00)
--- NOTE | 2024-05-27 17:12 | NUR ---
TRANSFER TO PCU: PATIENT TRANSFERRED TO PCU AROUND 1630. PATIENT ABLE TO TRANSFER FROM CHAIR WITH WHEELCHAIR WITH ONE ASSIST. PATIENT DID REPORT SHORTNESS OF BREATH WITH THIS ACTIVITY. PATIENT REMAINED STABLE ON 1L WITH SPO2 >90% DURING TRANSFER. DISCUSSED WITH DR. FERNANDES. NEW ORDERS FOR PT/OT. PATIENT TRANSFERRED WITH ALL OF HER BELONGINGS INCLUDING CELL PHONE, GLASSES AND SLIPPERS. PATIENT'S DAUGHTER TERRI INFORMED OF TRANSFER.
--- NOTE | 2024-05-27 17:33 | NUR ---
PT TRANSFERED FROM ICU 06 TO PCU 20. REPORT RECIEVED FROM CHANCE STRANGE RN. THE PT TRANSFERED TO THE ROOM VIA WHEELCHAIR. SHE WAS A 1P ASSIST TO THE CHAIR. PT SITTING UP FOR DINNER. ON TELE SHE IS AFIB 90'S-120'S. HR INCREASED WITH ACTIVITY. BP STABLE. SHE IS ON 1L NC W/ SP02 >93% AND SHE DENIES ANY SOB. LUNG SOUNDS ARE COARSE AND WHEEZY T/O. THE PT IS A&OX4, AND ABLE TO MAKE HER NEEDS KNOWN. PERRLA. SHE DENIES N/T BUT DOES HAVE TENDERNESS TO TOUCH ON HER INNER LOWER LEGS. THE PT HAS A STANTON PATENT AND DRAINING TO GRAVITY. DR. FERNANDES WANTS THE STANTON LEFT IN PLACE D/T THE HEAVY DIURESISING. DR. FERNANDES CAME TO BEDSIDE AND REEVALUATED THE PT AND WANTS TO INCREASE THE METOPROLOL. THE PT'S BP WAS NOT WITHIN PARAMETERS SO WE CALLED DR. FERNANDES AND SHE WANTS THE 1800 LASIX HELD, AND WANTS THE 1700 OT ORDERED OF METOPROLOL XL 50MG HELD UNTIL 1999 IF THE PT'S VITALS ARE IN THE PARAMETERS. PLAN TO REEVALUATE DIURETICS AND STANTON IN THE MORNING. PT/OT ORDERS WERE OBTAINED. FAMILY AT BEDSIDE AND UPDATED ON TRANSFER AND PLAN OF CARE. SEE NOTES FOR ANY UPDATES.
[2024-05-27] MEDS ORDERED: Ipratropium/Albuterol SulF 2.5-0.5MG/3 ML Amp INH SCH (20:06)
[2024-05-28] VITALS (10 sets, daily range): BP systolic 69–133; BP diastolic 51–97
[2024-05-28 04:19] LABS: BASOPHILS ABSOLUTE AUTO 0.05 K/mm3 (0.00-0.23); BASOPHILS PERCENT AUTO 0 % (0-2); EOSINOPHILS ABSOLUTE AUTO 0.14 K/mm3 (0.00-0.68); EOSINOPHILS PERCENT AUTO 1 % (0-6); Hematocrit 40.4 % (33.0-51.0); Hemoglobin 13.4 g/dL (11.5-16.0); IMMATURE GRAN ABSOLUTE AUTO 0.09 K/mm3 (0.00-0.10); IMMATURE GRAN PERCENT AUTO 1 % (0-1); LYMPHOCYTES ABSOLUTE AUTO 1.55 K/mm3 (0.84-5.20); LYMPHOCYTES PERCENT AUTO 14 % (21-46); MONOCYTES ABSOLUTE AUTO 1.06 K/mm3 (0.16-1.47); MONOCYTES PERCENT AUTO 9 % (4-13); Mean Corpuscular HGB 27.3 pg (26.0-34.0); Mean Corpuscular HGB Conc 33.2 g/dL (31.5-36.5); Mean Corpuscular Volume 82 fL (80-100); Mean Platelet Volume 9.3 fL (9.1-12.4); NEUTROPHILS ABSOLUTE AUTO 8.61 K/mm3 (1.96-9.15); NEUTROPHILS PERCENT AUTO 75 % (41-73); Platelet Count 356 K/mm3 (150-400); RDW Coefficient Variation 14.1 % (11.7-14.2); RDW Standard Deviation 41.8 fL (35.1-46.3)
--- NOTE | 2024-05-28 04:22 | NUR ---
SHIFT SUMMARY PT HAVING INTERMITTENT, BRIEF PERIODS OF AFIB WITH RVR, HR RANGING 100'S-150'S. LOW GRADE FEVERS, TMAX 100.0, NOW 98.8. BP STABLE. 1500+ MLS UOP VIA STANTON, ON LASIX. PT HAD MINIMAL COMPLAINTS OVERNIGHT ASIDE FROM BEING WOKEN UP FOR VITALS.
[2024-05-28 04:32] LABS: Bun/Creatinine Ratio 39.9 (12.0-20.0); Calcium, Blood 9.3 mg/dL (8.5-10.1); Creatinine, Blood 1.63 mg/dL (0.40-1.00); Potassium, Blood 3.7 mmol/L (3.5-5.5)
[2024-05-28] MEDS ORDERED: Potassium Chloride 20 MEQ TabCR PO ONE (08:00)
[2024-05-28 08:41] LABS: Magnesium, Blood 2.6 mg/dL (1.6-2.4); Phosphorus, Blood 5.1 mg/dL (2.5-4.9)
[2024-05-28] MEDS ORDERED: Furosemide 40 MG Tab PO SCH (09:00)
[2024-05-28] MEDS ORDERED: Metoprolol Succinate 50 MG TABCR PO SCH ×2 (09:00→10:10)
--- NOTE | 2024-05-28 12:14 | NUR ---
THIS RN CALLED CALLED DR. FERNANDES D/T HYPOTENSION. DR. FERNANDES ORDERED 500CC BOLUS OF NS AND 10MG MIDODRINE PO NOW. SHE WOULD LIKE THE AMIO GTT STARTED AFTER BOLUS. DISCUSSED WITH ROCKET TEST FIRE WORKER. SEE NOTES FOR UPDATES.
[2024-05-28] MEDS ORDERED: Midodrine 5 MG Tab PO ONE (12:15)
[2024-05-28] MEDS ORDERED: NS 500 ML IV ONE (12:15)
--- NOTE | 2024-05-28 18:00 | NUR ---
END OF SHIFT SUMMARY SEE PREVIOUS NOTES. THE PT REMAINS A&OX4, AND CAN MAKE HER NEEDS KNOWN. SHE IS A 1P ASSIST W/ FWW TO THE CHAIR OR BSC. PHYSICAL THERAPY WORKED WITH THE PT TODAY. THE PT HAS BEEN UP IN THE CHAIR MAJORITY OF THE DAY. ON TELE SHE AHS BEEN AFLUTTER 90'S-140'S. BP DID GET SOFT AND A 500CC BOLUS AND 10MG MIDORINE WAS GIVEN, BP IMPROVED. SHE IS CURRENTLY ON AN AMIOGTT. IT WILL NEED TO BE TITRATED PER EMAR AT 1920. HE FAMILY HAS BEEN AT THE BEDSIDE AND UPDATED ON CARE. HE ROMY WAS DC'D AND THE PT DID VOID POST STANTON. SHE IS CURRENTLY UP IN THE CHAIR VISITING WITH MULTIPLE FAMILY MEMBERS. SEE NOTES FOR UPDATES.
[2024-05-29 04:28] VITALS: BP 108/70
[2024-05-29 04:34] LABS: Hematocrit 39.1 % (33.0-51.0); Mean Corpuscular HGB 27.5 pg (26.0-34.0); Mean Corpuscular HGB Conc 33.2 g/dL (31.5-36.5); Mean Corpuscular Volume 83 fL (80-100); Mean Platelet Volume 9.2 fL (9.1-12.4); Platelet Count 339 K/mm3 (150-400); RDW Coefficient Variation 13.8 % (11.7-14.2); RDW Standard Deviation 41.5 fL (35.1-46.3); Red Blood Cell Count 4.72 M/mm3 (3.80-5.20); White Blood Cell Count 10.23 K/mm3 (4.00-11.30)
[2024-05-29 04:47] LABS: Albumin, Blood 2.8 g/dL (3.4-5.0); Albumin/Globulin Ratio 0.8 (0.8-1.8); Bilirubin, Total 0.3 mg/dL (0.1-1.0); Bun/Creatinine Ratio 46.7 (12.0-20.0); C-REACTIVE PROTEIN, EXT RANGE 1.19 mg/dL (0.000-0.300); Calcium, Blood 9.4 mg/dL (8.5-10.1); Creatinine, Blood 1.5 mg/dL (0.40-1.00); Globulin, Blood 3.7 g/dL (2.2-4.0); Magnesium, Blood 2.7 mg/dL (1.6-2.4); Potassium, Blood 3.6 mmol/L (3.5-5.5); Total Protein, Blood 6.5 g/dL (6.4-8.2)
[2024-05-29 04:58] LABS: BAND PERCENT MAN 4 % (0-8); BASOPHILS PERCENT MAN 0 % (0-2); EOSINOPHILS PERCENT MAN 3 % (0-6); LYMPHOCYTES ABSOLUTE MAN 2.35 K/mm3 (0.84-5.20); LYMPHOCYTES PERCENT MAN 23 % (21-46); MONOCYTES ABSOLUTE MAN 1.02 K/mm3 (0.16-1.47); MONOCYTES PERCENT MAN 10 % (4-13); NEUTROPHILS ABSOLUTE MAN 6.54 K/mm3 (1.96-9.15); SEG NEUTROPHILS PERCENT MAN 60 % (41-73); TOTAL CELLS COUNTED 100
[2024-05-29 08:09] VITALS: BP 147/94
[2024-05-29] MEDS ORDERED: Amiodarone HCl 200 MG Tab PO SCH ×2 (09:00→11:49)
[2024-05-29] MEDS ORDERED: Potassium Chloride 20 MEQ TabCR PO ONE (09:00)
--- NOTE | 2024-05-29 11:53 | NUR ---
AT 1145 THIS RN WENT TO REASSESS THE PT AND HER GTT. WHEN INQURING ABOUT THE LAC THE PT SAID IT "RECENTLY STARTED TO BURN". IT IS TENDER TO TOUCH. REDNESS AND SWELLING ABSENT. THIS RN CALLED DR. FERNANDES AND DR. FERNANDES SAID TO STOP THE GTT NOW AND START THE PT'S PO AMRIO. PHARMACY CALLED ABOUT CHANGED AND INFILTRAITION. WARM-DRY BLANKET ON THE PT'S ARM AT THIS TIME. HEALTHCARE BUSINESS ANALYST AWARE.
[2024-05-29 12:05] VITALS: BP 127/73
[2024-05-29 15:35] VITALS: BP 137/90
--- NOTE | 2024-05-29 17:28 | NUR ---
SHIFT SUMMARY THE PT IS A&OX4, BUT HAS BEEN WITHDRAWN. THIS AFTERNOON SHE DID GET EMOTIONAL AND WAS MISSING HER PARENTS. SHE DID NOT WANT TO TALK ABOUT IT OR WANT A SPIRITUAL CARE VISIT. THE PT IS A 1P ASSIST W/ FWW. SHE HAS BEEN UP IN THE CHAIR FOR ABOUT HALF OF THE DAY. SHE STATES SHE FEELS VERY WEAK TODAY. SHE HAS BEEN ON RA MAJORITY OF THE SHIFT AND DENIES ANY SOB. ON TELE SHE HAS BEEN AFLUTTER 80'S-100'S (BP STABLE). THE PT DID HAVE AND AMIO GTT INFUSING AND SHE WAS SWITCHED TO ORAL MEDICATIONS. SEE PREVIOUS NOTE. LAC, WHERE IV INFILTRATED IS WRAPPED FOR COMPRESSION AND A HEATING PAD HAS BEEN APPLIED. THE SITE IS NOT RED, BUT IS NOW FIRM AND REMAINS TENDER. THE PT HAS HAD FAMILY IN THE ROOM AND THEY WERE UPDATED ON CARE. NO ACUTE EVENTS. SEE NOTES FOR UPDATES .
[2024-05-29 20:07] VITALS: BP 111/57
[2024-05-29] MEDS ORDERED: Benzonatate 100 MG Cap PO PRN (21:50)
[2024-05-30 00:36] VITALS: BP 108/81
[2024-05-30 04:26] VITALS: BP 122/72
--- NOTE | 2024-05-30 06:28 | NUR ---
PT STABLE THROUGHOUT THE SHIFT. PT AOX4, SBA, ON ROOM AIR. PT USES CALL LIGHT APPROPRIATELY AND ABLE TO MAKE NEEDS KNOWN. PT DOES HAVE HARSH COUGH THAT IS IMPROVED WITH TESSALON PERLS. PT REMAINS AFIB/FLUTTER WITH RATES 80S-110S. NO C/O CHEST OR DYSPNEA. LEFT AC INFILTRATION SITE INDURATION IMPROVED. PT REMAINS IN DROPLET PRECAUTIONS.
[2024-05-30 07:36] VITALS: BP 131/80
[2024-05-30] MEDS ORDERED: Potassium Chloride 20 MEQ TabCR PO ONE (10:00)
[2024-05-30 11:59] VITALS: BP 130/61
[2024-05-30] MEDS ORDERED: Furosemide 40 MG Tab PO SCH (15:00)
[2024-05-30 16:02] VITALS: BP 118/98
--- NOTE | 2024-05-30 17:02 | NUR ---
SHIFT SUMMARY: PT ALERT A&OX4. FOLLOWS COMMANDS AND MAKED NEEDS KNOWN TO STAFF. PTS HR HAS REMAINED AT A CONTROLLED RATE AND HAS REMAINED FREE OF ANY CP, PRESSURE, TIGHTNESS OR SOB DURING THIS SHIFT. PT HAS CONTINUED TO HAVE A HACKING COUGH THAT IS RELIEVED WITH TESSALON PEARLS. PT CONTINUES TO HAVE WHEEZES THROUGHOUT. PT WAS ABLE TO GET UP AND USE BSC WITHOUT ANY ASSISTANCE. NO SIGNIFICANT EVENTS HAPPENED DURING THIS SHIFT. WILL CONTINUE TO CARE FOR PT TILL END OF SHIFT.
--- NOTE | 2024-05-30 20:30 | NUR ---
PT TRANSFERRED TO MEDICAL FLOOR VIA BED FROM PCU. PT IS ALERT AND ORIENTED, DENIES ANY PAIN, EXCEPT LEFT ARM AC PAIN FROM AN IV INFILTRATION. MARKED LAC SITE WITH A SHARPY. PT HAS A KPAD FOR COMFORT. REPORT FROM WAREHOUSE DISTRIBUTION ASSOCIATE IS AMIODARONE IV INFILTRATED AT THIS SITE. CONTINUOUS BIOX PLACED ON - SATS WNL ON RA. PT REPORTS SOB WITH AMBULATION, OTHERWISE DENIES ANY SOB WHILE IN BED. CALL LIGHT WITHIN REACH. BED IN LOW POSITION. FLUIDS AT BEDSIDE. PT HAS ATTNDS IN PLACE FOR STRESS INCONTINENCE. PT IN DROPLET ISOLATION.
[2024-05-30 20:38] VITALS: BP 127/79
--- NOTE | 2024-05-30 20:42 | NUR ---
2030: PT TRANSFERRED TO ROOM 361 BY BED WITH ALL BELONGINGS AND PAPERWORK. REPORT PREVIOUSLY GIVEN BY OFF GOING DAYSHIFT, NO SIGNIFICANT UPDATES TO REPORT DURING TRANSFER.
[2024-05-31 02:07] VITALS: BP 117/84
[2024-05-31 04:54] VITALS: BP 141/82
--- NOTE | 2024-05-31 04:56 | NUR ---
SHIFT SUMMARY - NO ACUTE CHANGES SINCE ADMIT LAST NOC. CONTINUOUS BIOX IN PLACE - SATS WNL THROUGHOUT THE NIGHT - PT CONTINUES ON RA. PT UP TO BSC X1 WITH COFFEE SHOP AIDE. PT HAS DISCOLORED BLE - LIGHT PINK TO RED, HOWEVER PT REPORTS THIS "IS SO MUCH BETTER" THAN IT WAS. PT IS ABLE TO MAKE HER NEEDS KNOWN AND USES THE CALL LIGHT APPROPRIATELY. FLUIDS AT BEDSIDE. BED IN LOW POSITION. WILL REPORT OFF TO ONCOMING SHIFT.
[2024-05-31 06:30] LABS: BASOPHILS ABSOLUTE AUTO 0.09 K/mm3 (0.00-0.23); BASOPHILS PERCENT AUTO 1 % (0-2); EOSINOPHILS ABSOLUTE AUTO 0.39 K/mm3 (0.00-0.68); EOSINOPHILS PERCENT AUTO 4 % (0-6); Hematocrit 39.2 % (33.0-51.0); Hemoglobin 12.9 g/dL (11.5-16.0); IMMATURE GRAN PERCENT AUTO 1 % (0-1); LYMPHOCYTES ABSOLUTE AUTO 1.77 K/mm3 (0.84-5.20); LYMPHOCYTES PERCENT AUTO 17 % (21-46); MONOCYTES ABSOLUTE AUTO 1.16 K/mm3 (0.16-1.47); MONOCYTES PERCENT AUTO 11 % (4-13); Mean Corpuscular HGB 27.3 pg (26.0-34.0); Mean Corpuscular HGB Conc 32.9 g/dL (31.5-36.5); Mean Corpuscular Volume 83 fL (80-100); Mean Platelet Volume 8.9 fL (9.1-12.4); NEUTROPHILS ABSOLUTE AUTO 6.96 K/mm3 (1.96-9.15); NEUTROPHILS PERCENT AUTO 66 % (41-73); Platelet Count 338 K/mm3 (150-400); RDW Coefficient Variation 13.6 % (11.7-14.2); RDW Standard Deviation 41.1 fL (35.1-46.3); Red Blood Cell Count 4.72 M/mm3 (3.80-5.20); White Blood Cell Count 10.47 K/mm3 (4.00-11.30)
[2024-05-31 07:01] LABS: Bun/Creatinine Ratio 32.7 (12.0-20.0); Calcium, Blood 9.5 mg/dL (8.5-10.1); Creatinine, Blood 1.5 mg/dL (0.40-1.00); Potassium, Blood 4.4 mmol/L (3.5-5.5)
[2024-05-31 07:41] VITALS: BP 109/76
[2024-05-31] MEDS ORDERED: Furosemide 10 MG/ML 4ML Vial IV SCH ×2 (11:00→18:00)
[2024-05-31 11:23] VITALS: BP 109/64
[2024-05-31 14:35] VITALS: BP 115/86
--- NOTE | 2024-05-31 18:14 | NUR ---
PATIENT IS ALERT AND ORIENTED AND COOPERATIVE WITH CARE. EXPIRATORY WHEEZES HEARD THROUGHOUT ALL LUNG SANCHEZ. HR STABLE AT 80 BPM. ON RA. PATENT SAT IN CHAIR FOR 4 HOURS THIS SHIFT. AMBULATES TO THE BATHROOM SBA. FAMILY AT THE BESIDE. UPDATE GIVEN TO THE PATIENT'S DAUGHTER. WILL CONTINUE TO MONITOR
[2024-05-31 19:43] VITALS: BP 139/111
[2024-06-01 03:15] VITALS: BP 141/60
--- NOTE | 2024-06-01 06:01 | NUR ---
SHIFT SUMMARY PT ALERT AND ORIENTED TIMES 3. PT ADMITTED FOR INCREASED SOB OVER 4 DAYS. PT HAS ATRIAL FLUTTER. PT HAS EF OF 30-35%..3BED IN LOW POSITION, CALL LIGHT WITHIN REACH, RAILS TIMES 2.
[2024-06-01 07:58] VITALS: BP 120/78
[2024-06-01 09:16] LABS: BASOPHILS ABSOLUTE AUTO 0.08 K/mm3 (0.00-0.23); BASOPHILS PERCENT AUTO 1 % (0-2); EOSINOPHILS PERCENT AUTO 4 % (0-6); Hematocrit 41.2 % (33.0-51.0); Hemoglobin 13.4 g/dL (11.5-16.0); IMMATURE GRAN ABSOLUTE AUTO 0.11 K/mm3 (0.00-0.10); IMMATURE GRAN PERCENT AUTO 1 % (0-1); LYMPHOCYTES ABSOLUTE AUTO 1.57 K/mm3 (0.84-5.20); LYMPHOCYTES PERCENT AUTO 16 % (21-46); MONOCYTES ABSOLUTE AUTO 0.88 K/mm3 (0.16-1.47); MONOCYTES PERCENT AUTO 9 % (4-13); Mean Corpuscular HGB 27.1 pg (26.0-34.0); Mean Corpuscular HGB Conc 32.5 g/dL (31.5-36.5); Mean Corpuscular Volume 83 fL (80-100); Mean Platelet Volume 8.9 fL (9.1-12.4); NEUTROPHILS ABSOLUTE AUTO 6.93 K/mm3 (1.96-9.15); NEUTROPHILS PERCENT AUTO 70 % (41-73); Platelet Count 340 K/mm3 (150-400); RDW Coefficient Variation 13.8 % (11.7-14.2); RDW Standard Deviation 41.7 fL (35.1-46.3); Red Blood Cell Count 4.94 M/mm3 (3.80-5.20); White Blood Cell Count 9.97 K/mm3 (4.00-11.30)
[2024-06-01 09:38] LABS: Bun/Creatinine Ratio 31.7 (12.0-20.0); Creatinine, Blood 1.42 mg/dL (0.40-1.00); Potassium, Blood 3.7 mmol/L (3.5-5.5)
[2024-06-01] MEDS ORDERED: Furosemide 10 MG/ML 4ML Vial IV SCH (13:00)
[2024-06-01 15:38] VITALS: BP 124/74
[2024-06-01 19:41] VITALS: BP 117/70
[2024-06-01 23:56] VITALS: BP 150/114
--- NOTE | 2024-06-02 04:36 | NUR ---
SHIFT SUMMARY PT ALERT AND ORIENTED TIMES 3. PT ADMITTED FOR INCREASED SOB OVER 4 DAYS. PT HAS ATRIAL FLUTTER. PT HAS EF OF 30-35%. PT ABLE TO MAKE NEEDS KNOWN TO STAFF. PT APPEARED TO SLEEP ON AND OFF THROUGH THE NIGHT. BED IN LOW POSITION, CALL LIGHT WITHIN REACH, RAILS TIMES 2.
[2024-06-02 04:55] VITALS: BP 128/71
[2024-06-02 06:27] LABS: Bun/Creatinine Ratio 30.3 (12.0-20.0); Calcium, Blood 9.5 mg/dL (8.5-10.1); Creatinine, Blood 1.55 mg/dL (0.40-1.00); Potassium, Blood 3.2 mmol/L (3.5-5.5)
[2024-06-02 07:50] VITALS: BP 131/50
[2024-06-02] MEDS ORDERED: Potassium Chloride 20 MEQ TabCR PO ONE (08:00)
[2024-06-02] MEDS ORDERED: Amiodarone HCl 200 MG Tab PO SCH (09:00)
[2024-06-02] MEDS ORDERED: Furosemide 40 MG Tab PO SCH (09:00)
[2024-06-02] MEDS ORDERED: LISI5 PO (12:34)
[2024-06-02] MEDS ORDERED: FURO40 PO (12:35)
[2024-06-02] MEDS ORDERED: POTCHL20ER PO (12:35)
[2024-06-02] MEDS ORDERED: BENZ100A PO (12:36)
[2024-06-02] MEDS ORDERED: ELIQUIS5 M2 PO (12:36)
[2024-06-02] MEDS ORDERED: PACERONE100 M1 PO (12:36)
[2024-06-02] MEDS ORDERED: SPIR25 PO (12:38)
--- NOTE | 2024-06-02 14:02 | NUR ---
DISCHARGE NOTE PATIENT EDUCATED WITH FAMILY AT BEDSIDE ON NEW PRESCRIPTIONS AND FOLLOW UP APPT TIMEFRAMES. MEDICATIONS FAXED TO [facility], POWERGLIDE REMOVED. ESCORTED DOWNSTAIRS VIA WHEELCHAIR. NO NEW QUESTIONS OR CONCERNS.
== END 2024-06-02 14:45 | disposition home health service (06) | DRG 291 ==
LOC: ER 03:38 → ICUE 05:04 → MEDS 05:04 → ERHOLD 05:04 → PCU 05:04 → ICUE 05-26 11:34 → PCU 05-27 16:13 → MEDS 05-30 20:27 → ENPENDDIS 06-02 11:09 → MEDS 06-02 14:45
PROVIDERS: Emergency Medicine; Internal Medicine; ADMIT Student in an Organized Health Care Education/Training Program
PROC: 5A09457 Assistance with Respiratory Ventilation, 24-96 Consecutive Hours, Continuous Positive Airway Pressure (ICD-10-PCS; principal; 2024-05-25)
DX: I13.0 Hypertensive heart and chronic kidney disease with heart failure and stage 1 through stage 4 chronic kidney disease, or unspecified chronic kidney disease (principal); I50.43 Acute on chronic combined systolic (congestive) and diastolic (congestive) heart failure; J96.01 Acute respiratory failure with hypoxia; J96.02 Acute respiratory failure with hypercapnia; J44.1 Chronic obstructive pulmonary disease with (acute) exacerbation; I48.20 Chronic atrial fibrillation, unspecified; I48.92 Unspecified atrial flutter; R65.10 Systemic inflammatory response syndrome (SIRS) of non-infectious origin without acute organ dysfunction; E66.9 Obesity, unspecified; N18.30 Chronic kidney disease, stage 3 unspecified; R33.9 Retention of urine, unspecified; B97.81 Human metapneumovirus as the cause of diseases classified elsewhere; Z99.81 Dependence on supplemental oxygen; Z66 Do not resuscitate; Z79.01 Long term (current) use of anticoagulants; Z95.2 Presence of prosthetic heart valve; Z87.891 Personal history of nicotine dependence; Z88.8 Allergy status to other drugs, medicaments and biological substances; Z91.038 Other insect allergy status; E78.5 Hyperlipidemia, unspecified; F41.9 Anxiety disorder, unspecified; M85.80 Other specified disorders of bone density and structure, unspecified site; Z98.890 Other specified postprocedural states; Z68.29 Body mass index [BMI] 29.0-29.9, adult
CPT/HCPCS: 0202U; 0241U; 36415; 51702; 71045; 80048; 80053; 82803; 83605; 83735; 83880; 84100; 84145; 84484; 85025; 85520; 85610; 85730; 86140; 87040; 93005; 93010; 94640; 94660; 94664; 94762; 96365; 97110; 97110-CQ; 97116; 97116-CQ; 97161; 97165; 97530; 97535; 99285-25; A9270; C8929; J0282; J0456; J0696; J1644; J1940; J2060; J2919; J7040; J7050; J7060; J7512; Q9957